=== PATIENT | female | born 1955 | race Caucasian/White ===

== ENCOUNTER 2019-01-15 09:46 | Day surgery (SDC) | payer MEDICARE, MEDICAID ==
[2019-01-14 12:14] LABS: BASOPHILS % (AUTO) 0.7 % (0-1); EOSINOPHILS # (AUTO) 0.1 X10'3 (0-0.9); EOSINOPHILS % (AUTO) 0.9 % (0-6); HEMOGLOBIN 13.7 g/dl (12.0-16.0); LYMPHOCYTES # (AUTO) 1.3 X10'3 (1.1-4.8); LYMPHOCYTES % (AUTO) 19.6 % (21-51); MEAN CORPUSCULAR HEMOGLOBIN 33.3 PG (27.0-31.0); MEAN CORPUSCULAR HGB CONC 33.5 g/dL (33.0-36.5); MEAN CORPUSCULAR VOLUME 99.4 FL (78-98); MONOCYTES # (AUTO) 0.4 X10'3 (0-0.9); MONOCYTES % (AUTO) 6.7 % (2-12); NEUTROPHILS # (AUTO) 4.7 X10'3 (1.8-7.7); NEUTROPHILS % (AUTO) 72.1 % (42-75); PLATELET COUNT 232 X10'3 (140-440); RED BLOOD COUNT 4.13 X10'6 (4.20-5.60); RED CELL DISTRIBUTION WIDTH 12.9 % (11.5-14.5); WHITE BLOOD COUNT 6.6 X10'3 (4.5-11.0)
[2019-01-14 12:31] LABS: ALANINE AMINOTRANSFERASE 62 U/L (12-78); ALBUMIN 3.5 G/DL (3.4-5.0); ALBUMIN/GLOBULIN RATIO 1.1 (1.1-1.5); ALKALINE PHOSPHATASE 110 IU/L (46-116); ANION GAP 7 (8-16); ASPARTATE AMINO TRANSFERASE 23 U/L (10-37); BILIRUBIN,TOTAL 0.2 MG/DL (0.1-1.0); BLOOD UREA NITROGEN 23 MG/DL (7-18); BUN/CREATININE RATIO 31.5 (6.6-38.0); CALCIUM 8.5 MG/DL (8.5-10.1); CHLORIDE 107 MMOL/L (99-107); CREATININE 0.73 MG/DL (0.40-0.90); GLUCOSE 89 MG/DL (70-104); POTASSIUM 3.8 MMOL/L (3.5-5.1); SODIUM 143 MMOL/L (135-145); TOTAL CARBON DIOXIDE 29.2 MMOL/L (24-32); TOTAL PROTEIN 6.7 G/DL (6.4-8.2); eGFR 81 ML/MIN
[2019-01-14 12:39] LABS: PARTIAL THROMBOPLASTIN TIME 26 SECONDS (22-32)
[2019-01-15] VITALS (11 sets, daily range): BP systolic 106–149; BP diastolic 51–66
[~2019-01-15] VITALS: Ht 180.3 cm; Wt 80.2 kg
[2019-01-15] MEDS ORDERED: LORazepam 0.5 MG tablet PO PRN (10:15)
[2019-01-15] MEDS ORDERED: diphenhydrAMINE 25mg capsule PO PRN (10:15)
[2019-01-15] MEDS ORDERED: normal saline 1,000 ML IV SCH (10:15)
[2019-01-15] MEDS ORDERED: nitroGLYCERIN 0.4mg SUBLingual tab SL PRN (10:15)
[2019-01-15] MEDS ORDERED: LEVA15HF4 INH (10:26)
[2019-01-15] MEDS ORDERED: PHEN100C4 PO (10:26)
[2019-01-15] MEDS ORDERED: ASPI-611 PO (10:26)
[2019-01-15] MEDS ORDERED: CETI-102 PO (10:26)
[2019-01-15] MEDS ORDERED: ZOLP5TAB8 PO (10:26)
[2019-01-15] MEDS ORDERED: ESTR1.25 PO (10:26)
[2019-01-15] MEDS ORDERED: ATEN25TA PO (10:26)
[2019-01-15] MEDS ORDERED: HYDR-4353 PO (10:26)
[2019-01-15] MEDS ORDERED: LIDOcaine 1% (10mg/ml)w/preservative injection 20ml MDV ONE (12:29)
[2019-01-15] MEDS ORDERED: fentaNYL/PF 50MCG/1 ML 2ML syringe ONE ×2 (12:29→13:01)
[2019-01-15] MEDS ORDERED: midazolam 2 mg/2 ml injection ONE ×2 (12:29→13:01)
[2019-01-15] MEDS ORDERED: iohexol 350MG/ML 100ml bottle IV ONE (12:29)
[2019-01-15] MEDS ORDERED: iohexol 350 MG/ML 50ML vial IV ONE (12:29)
[2019-01-15] MEDS ORDERED: nitroGLYCERIN-Tridil 50MG/D5W 250 ML IV ONE (13:05)
[2019-01-15] MEDS ORDERED: proCHLORperazine 10 MG/2 ml inj IV PRN (13:40)
[2019-01-15] MEDS ORDERED: ondansetron/PF 4mg/2ml inj IV PRN (13:40)
[2019-01-15] MEDS ORDERED: OXAZEpam 15mg capsule PO PRN (13:40)
[2019-01-15] MEDS ORDERED: HYDROcodone/acetaminophen 10/325mg tab PO PRN (13:45)
[2019-01-15] MEDS ORDERED: HYDROcodone/acetaminophen 5mg/325mg tablet PO PRN (13:45)
[2019-01-15] MEDS ORDERED: HYDROcodone/acetaminophen 10/325mg tab PO ONE (15:05)
== END 2019-01-15 18:50 | disposition home or self-care (01) ==
LOC: SSTAY O 09:46
PROVIDERS: ATTEND Internal Medicine Cardiovascular Disease
DX: I25.10 Atherosclerotic heart disease of native coronary artery without angina pectoris (principal); J44.9 Chronic obstructive pulmonary disease, unspecified; I10 Essential (primary) hypertension; G89.4 Chronic pain syndrome; E78.00 Pure hypercholesterolemia, unspecified; M47.892 Other spondylosis, cervical region; Z98.1 Arthrodesis status; Z79.899 Other long term (current) drug therapy; Z79.01 Long term (current) use of anticoagulants
CPT/HCPCS: 36415; 71046; 80053; 85025; 85610; 85730; 93458; 99152; 99153; C1769; J1644; J2001; J2250; J3010; J7030; Q0163; Q9967; A4620; A6258; C1760; J3490

== ENCOUNTER 2023-06-14 06:41 | Emergency (ER) | payer BC, MEDICAID ==
[~2023-06-14] VITALS: Ht 177.8 cm; Wt 79.1 kg
[~2023-06-14 06:41] MED LIST: ASPI-611 PO; ATEN25TA PO; CETI-90 PO; ESTR1.25 PO; HYDR-4353 PO; LEVA15HF4 INH; PHEN100C4 PO; ZOLP5TAB8 PO
[2023-06-14] MEDS ORDERED: BUPIVAcaine 0.5% W/EPI /PF 10ml vial IJ STA (10:34)
[2023-06-14] MEDS: BUPIVAcaine 0.5% W/EPI /PF 30ml vial IJ STA ×2 (10:59→11:27)
[2023-06-14] MEDS ORDERED: DOXY150T9 PO (11:30)
[2023-06-14 11:34] VITALS: BP 124/68; PULSE 63; RESP 17; TEMP 98.1; O2SAT 98
== END 2023-06-14 11:37 | disposition home or self-care (01) ==
LOC: ER 06:41
DX: L02.01 Cutaneous abscess of face (principal); Z88.0 Allergy status to penicillin; Z79.899 Other long term (current) drug therapy
CPT/HCPCS: 10060; 87070; 87077; 87186; 99283; A6449